=== PATIENT | male | born 1965 | race Caucasian/White ===

== ENCOUNTER 2017-08-31 08:48 | Inpatient (IN) | payer BC ==
[~2017-08-31] VITALS: Ht 185.4 cm; Wt 89.8 kg
--- NOTE | 2017-08-31 09:00 | NUR ---
BBRA 99 FROM HOME CG CALLED 911 PT MORE CONFUSED THAN BASELINE X3 DAYS. PATIENT IS JAUNDICE IN APPEARANCE. A/OX 1. BREATHING EVEN AND UNLABORED. NO SOB, NAD. ABDOMEN DISTENDED. VITALS STABLE. SAFETY AND COMFORT MEASURES IN PLACE. AWAITING MD ORDERS.
--- NOTE | 2017-08-31 09:19 | NUR ---
TRUCK DISPATCHER AT BEDSIDE FOR BLOOD DRAW.
--- NOTE | 2017-08-31 09:22 | NUR ---
PATIENT TAKEN TO CT VIA STRETCHER.
--- NOTE | 2017-08-31 09:33 | NUR ---
PATIENT RETURNED FROM CT IN STABLE CONDITION.
[2017-08-31 09:36] LABS: CARBON DIOXIDE 25 mmol/L (21-32); CHLORIDE 106 mmol/L (98-107); CREATININE 1.7 mg/dL (0.6-1.3); GLUCOSE 106 mg/dL (74-106); POTASSIUM 5.8 mmol/L (3.5-5.1); SODIUM SERUM 138 mmol/L (136-145); UREA NITROGEN, BLOOD 32 mg/dL (7-18)
[2017-08-31 09:38] LABS: SERUM AMMONIA 38 umol/L (11-32)
[2017-08-31 09:39] LABS: INR 1.71 (0.85-1.15)
[2017-08-31 09:42] LABS: ALANINE AMINOTRANSFERASE 28 U/L (12-78); ALBUMIN 2.4 g/dL (3.4-5.0); ALCOHOL, BLOOD < 3 mg/dL (0-0); ALKALINE PHOSPHATASE 105 U/L (46-116); ASPARTATE AMINOTRANSFERASE 58 U/L (15-37); BILIRUBIN,DIRECT 2.4 mg/dL (0.0-0.2); BILIRUBIN,TOTAL 4.3 mg/dL (0.2-1.0); TOTAL PROTEIN, SERUM 8.5 g/dL (6.4-8.2)
[2017-08-31 09:44] LABS: TROPONIN I < 0.017 ng/mL (0.00-0.056)
[2017-08-31 09:46] LABS: MEAN CORPUSCULAR HEMOGLOBIN 37 PG (26.0-33.0); MEAN CORPUSCULAR HGB CONC 35 g/dl (31.0-36.0); MEAN CORPUSCULAR VOLUME 104 fL (80-96); PLATELET COUNT (AUTO) 92 /CMM (150-450); RDW COEFFICIENT OF VARIATION 20.8 (11.5-15.0); WHITE BLOOD COUNT (AUTO) 2.6 K/uL (4.3-11.0)
--- NOTE | 2017-08-31 09:52 | NUR ---
URINE OBTAINED AND SENT TO LAB VIA STRAIGHT CATH PER MD ORDER. 600ML URINE OUT, PAMELA AND CLEAR. MD INFORMED.
[2017-08-31 09:58] LABS: HEMATOCRIT 20 % (39-51)
[2017-08-31 10:01] LABS: APPEARANCE,URINE Slightly Cloudy (CLEAR); BILIRUBIN,URINE Negative (NEGATIVE); BLOOD, URINE Negative Ery/uL (NEGATIVE); COLOR,URINE Yellow (YELLOW); KETONES,URINE Negative (NEGATIVE); LEUKOCYTE ESTERASE ,URINE Negative (NEGATIVE); NITRITE, URINE Negative (NEGATIVE); PROTEIN,URINE Negative (NEGATIVE); UGLUCOSE Negative (NEGATIVE)
[2017-08-31 10:02] LABS: EOSINOPHILS % (MANUAL) 4 % (0-4); LYMPHOCYTES % (MANUAL) 29 % (16-48); MONOCYTES % (MANUAL) 5 % (0-11.0); NEUTROPHILS % (MANUAL) 62 (42-76)
[2017-08-31 10:12] LABS: BACTERIA,URINE None seen /HPF (None Seen); SQUAMOUS EPITHELIAL CELL,UR Few /HPF (None Seen); WBC,URINE 0-2 /HPF (0-3)
--- NOTE | 2017-08-31 10:15 | NUR ---
CALLED [facility]D, DR PERRY AT [place], . DR. FOX SPOKE WITH DR. PERRY REGARDING TRANSFER. DR. PERRY WILL CALL BACK WITH UPDATE.
[2017-08-31] MEDS ORDERED: IV NS 0.9% 1,000 ML BAG IV ONE ×2 (10:30→19:00)
[2017-08-31] MEDS ORDERED: NICO1PAT44 TD (10:46)
[2017-08-31] MEDS ORDERED: ONDA8TAB9 PO (10:46)
[2017-08-31] MEDS ORDERED: THIA100T13 PO (10:46)
[2017-08-31] MEDS ORDERED: ALLO100T PO (10:46)
[2017-08-31] MEDS ORDERED: OLOP2.5D5 EACHEYE (10:46)
[2017-08-31] MEDS ORDERED: FOLI1TAB16 PO (10:46)
[2017-08-31] MEDS ORDERED: SPIR100T3 PO (10:46)
[2017-08-31] MEDS ORDERED: LACT10SO PO (10:46)
[2017-08-31] MEDS ORDERED: PANT40TA4 PO (10:46)
[2017-08-31] MEDS ORDERED: FLUT9.9S NS (10:46)
[2017-08-31] MEDS ORDERED: RIFA550T PO (10:46)
[2017-08-31] MEDS ORDERED: FURO40TA5 PO (10:46)
[2017-08-31] MEDS ORDERED: GABA-534 PO ×2 (10:46)
--- NOTE | 2017-08-31 11:50 | NUR ---
CALLED [facility] TRANSFER CENTER, ASKED FOR UPDATE ON STATUS OF TRANSFER, SHE INFORMED ME SHE HAS GOTTEN NO INFO ON THIS PT AND TO FAX HER INFO TO [phone]. FAXED INFO.
--- NOTE | 2017-08-31 12:07 | NUR ---
CALLED [facility] TRANSFER CENTER TO SEE IF THEY RECEIVED MY FAX, SPOKE WITH KYLER, HE SAID HE DID RECEIEVE IT BUT THERE ARE NO BEDS AVAILABLE TODAY AND PEOPLE HAVE BEEN WAITING 3 DAYS TO GET IN SO IT IS BEST TO ADMIT PT HERE AND THEY CAN TRANSFER LATER WHEN A BED BECOMES AVAILABLE AT [facility].
--- NOTE | 2017-08-31 12:40 | NUR ---
CALLED [facility] L[facility] TRANSPLANT [facility], , REQUESTED TO SPEAK TO THE NURSE COORDINATOR LEAD RAMP SERVICE MAN FOR TRANSFER, SHE SAID SHE WILL CALL BACK IN 5 MIN.
--- NOTE | 2017-08-31 12:55 | NUR ---
CALLED [facility] TRANSPLANT C[facility] TO FOLLOW UP WITH PT, SPOKE WITH JACK, SHE SAID THE NURSE COORDINATOR STOCK WORKER AND DELIVERER FOR TRANSFER SHOULD CALL SOON AND SHE WILL CALL ME IN 10 MIN TO CHECK.
--- NOTE | 2017-08-31 13:13 | NUR ---
CALLED [facility] TRANSPLANT C[facility], SPOKE WITH THE NURSE COORDINATOR JEWEL BEARING GRINDER FOR [facility], SHE INFORMED ME SHE WILL HAVE A (RADIO ASSEMBLER) CALL BACK TO SPEAK TO REGARDING TRANSFER.
--- NOTE | 2017-08-31 13:52 | NUR ---
DR CHAO TALKING ON THE PHONE WITH DR FOX.
[2017-08-31] MEDS ORDERED: LACTULOSE 10 G/15 ML UDC (PYXIS) PO ONE (14:00)
[2017-08-31] MEDS ORDERED: LACTULOSE 10 G/15 ML UDC (PYXIS) ONE (14:00)
--- NOTE | 2017-08-31 14:00 | NUR ---
RECEIVED CALL FROM AUDREY AT [facility] LIVER TRANSPLANT QUITMAN, SHE SAID THE NETWORK SECURITY CONSULTANT ACCEPTED THE PT AND SHE WILL START THE TRANSFER PROCESS AND TO FAX HER PT INFO TO [phone].
--- NOTE | 2017-08-31 14:13 | NUR ---
PAGED [facility] -- ELECTROMAGNET CRANE OPERATOR IS DR GRAVES
--- NOTE | 2017-08-31 15:12 | NUR ---
REPORT GIVEN TO GIOVANNA HORNE FOR LEI TELE 106.
--- NOTE | 2017-08-31 15:15 | NUR ---
PATIENT TRANSPORTED TO [facility] VIA ACLS PROTCOL. COLEEN HEREDIA TO PROVIDE LEI.
[2017-08-31] MEDS ORDERED: ONDANSETRON 4 MG TAB.RAPDIS PO PRN (16:00)
[2017-08-31] MEDS: LACTULOSE 10 G/15 ML UDC (PYXIS) PO SCH ×2 (16:12→18:38)
[2017-08-31] MEDS: RIFAXIMIN 550 MG TABLET PO SCH (16:13)
[2017-08-31] MEDS: PANTOPRAZOLE 40 MG TABLET.DR PO SCH (16:13)
[2017-08-31] MEDS: GABAPENTIN 300 MG CAPSULE PO SCH (16:13)
[2017-08-31 16:30] VITALS: BP 97/53
[2017-08-31] MEDS: OLOPATADINE HCL 0.1% OPHTH BOTTLE EACHEYE SCH (18:38)
--- NOTE | 2017-08-31 19:00 | NUR ---
RN NOTES Received patient asleep but easily awakens,opens eyes,does not talk much,just answers in few words.Disoriented ,can not tell his birthday or his age,follows simple commands but responds slow.Not in distress ,able to move and turn but a little waek.Comfort care done,needs attended.Caregiver at bedside.Noted purplish discoloration of the 2nd toe(next to the big toe).Abrasion noted on the right below the knee.
[2017-08-31] MEDS ORDERED: IV NS 0.9% 1,000 ML IV PRN (19:30)
[2017-08-31 20:00] VITALS: BP 115/57
[2017-08-31] MEDS ORDERED: NICOTINE PATCH (14MG) 14 MG PATCH.TD24 TD SCH (21:00)
[2017-08-31] MEDS ORDERED: GABAPENTIN 300 MG CAPSULE PO SCH (22:00)
[2017-09-01] VITALS: BP 117/57
--- NOTE | 2017-09-01 | NUR ---
RN NOTES Status unchanged,asleep most of the time but awakens easily,still disoriented but cooperative.Not in distress. [facility] called,no bed for the patient tonight.
[2017-09-01 04:00] VITALS: BP 114/50
--- NOTE | 2017-09-01 07:00 | NUR ---
RN NOTES Remains stable,asleep most of the time,awakens but easily falls back to sleep.report given to Sharifa HEREDIA.
--- NOTE | 2017-09-01 07:30 | NUR ---
MANAGER MOTOR AM NOTES RECEIVED PT ON BED, ASLEEP, AROUSES TO NAME AND TOUCH, CONFUSED, FOLLOWS SIMPLE COMMAND, RESPIRATION EVEN AND UNLABORED, ON RA , NO DISTRESS NOTED, L HAND IV SITE CDI, WITH NS AT 75CC/HR RUNNING , SR UP x3, CALL LIGHT WITHIN EASY REACH, BED LOCKED AND IN LOWEST POSITION , SAFETY MEASURES IN PLACE. WILL CONTINUE TO MONITOR.
[2017-09-01 08:00] VITALS: BP 107/51
[2017-09-01] MEDS ORDERED: SPIRONOLACTONE 50 MG TABLET PO SCH (09:00)
[2017-09-01] MEDS ORDERED: FOLIC ACID 1 MG TABLET PO SCH (09:00)
[2017-09-01] MEDS ORDERED: FUROSEMIDE 40 MG TABLET PO SCH (09:00)
[2017-09-01] MEDS ORDERED: THIAMINE HCL 100 MG TABLET PO SCH (09:00)
[2017-09-01] MEDS ORDERED: NICOTINE PATCH (14MG) 14 MG PATCH.TD24 TD SCH (09:00)
[2017-09-01] MEDS ORDERED: FLUTICASONE PROPIONATE 16 GM BOTTLE NS PRN (09:00)
[2017-09-01] MEDS ORDERED: ALLOPURINOL 100 MG TABLET PO SCH (09:00)
[2017-09-01] MEDS: OLOPATADINE HCL 0.1% OPHTH BOTTLE EACHEYE SCH (09:28)
[2017-09-01] MEDS: PANTOPRAZOLE 40 MG TABLET.DR PO SCH (09:29)
[2017-09-01] MEDS: RIFAXIMIN 550 MG TABLET PO SCH (09:29)
[2017-09-01] MEDS: GABAPENTIN 300 MG CAPSULE PO SCH (09:29)
[2017-09-01] MEDS: LACTULOSE 10 G/15 ML UDC (PYXIS) PO SCH ×2 (09:30→12:39)
--- NOTE | 2017-09-01 09:30 | NUR ---
SPRING UP SUPERVISOR NOTES ADMINISTERED DUE MEDS.
[2017-09-01 12:00] VITALS: BP 101/50
--- NOTE | 2017-09-01 12:00 | NUR ---
RN NOTES RECEIVED PT ON BED, ALERT/ CONFUSED, FOLLOWS SIMPLE COMMAND, RESPIRATION EVEN AND UNLABORED, ON RA , NO DISTRESS NOTED, L HAND IV SITE CDI, WITH NS AT 75CC/HR RUNNING , SR UP x3, CALL LIGHT WITHIN EASY REACH, BED LOCKED AND IN LOWEST POSITION , WILL CONTIENU TO MONITOR PT CLOSELY
--- NOTE | 2017-09-01 13:30 | NUR ---
RN NOTE PATIENT STATED HE WANTED TO LEAVE AMA. EXPLAINED TO PATIENT THE RISKS OF LEAVING AMA, PATIENT STILL INSISTED TO LEAVE, [facility] ECD INFORMED. AMA FORM SIGNED. PATIENT'S FAMILY WILL PROVIDE TRANSPORTATION. TELE LEADS REMOVED, CLEANED PATIENT, IV REMOVED AND CATH INTACT, PATIENT REMAINS STABLE. MADE AWARE.
--- NOTE | 2017-09-01 14:54 | NUR ---
RN NOTE [facility] WILL BE TAKING RESIDENT VIA GURNEY. PATIENT REMAINS STABLE, VITAL SIGN ARE WNL. FAMILY MEMBER WILL ACCOMPANY RESIDENT HOME.
== END 2017-09-01 14:35 | disposition left against medical advice (07) | DRG 441 ==
LOC: ER 08:49 → TELE1 15:12
PROVIDERS: ADMIT Family Medicine; ATTEND Family Medicine
DX: K72.90 Hepatic failure, unspecified without coma (principal); K76.7 Hepatorenal syndrome; E44.0 Moderate protein-calorie malnutrition; G93.41 Metabolic encephalopathy; N17.9 Acute kidney failure, unspecified; K76.6 Portal hypertension; K70.30 Alcoholic cirrhosis of liver without ascites; N18.9 Chronic kidney disease, unspecified; K80.20 Calculus of gallbladder without cholecystitis without obstruction; K70.31 Alcoholic cirrhosis of liver with ascites; E87.5 Hyperkalemia; D63.8 Anemia in other chronic diseases classified elsewhere; Z88.1 Allergy status to other antibiotic agents; Z91.018 Allergy to other foods; Z72.0 Tobacco use
CPT/HCPCS: 36415; 70450-TC; 71045-TC; 76700-TC; 80048-TC; 80076-TC; 80305; 81000-TC; 82140-TC; 82962-TC; 84484-TC; 85025-TC; 85730-TC; 87081-TC; A4606; G0480; J3490; J7030; Z7610

== ENCOUNTER 2017-09-17 09:53 | Emergency (ER) | payer BC ==
[~2017-09-17] VITALS: Ht 180.3 cm; Wt 84.4 kg
[~2017-09-17 09:53] MED LIST: ALLO100T PO; FLUT9.9S NS; FOLI1TAB16 PO; FURO40TA5 PO; GABA-534 PO; LACT10SO PO; NICO1PAT44 TD; OLOP2.5D5 EACHEYE; ONDA8TAB9 PO; PANT40TA4 PO; RIFA550T PO; SPIR100T5 PO; THIA100T13 PO
--- NOTE | 2017-09-17 09:53 | NUR ---
BBRA: 99 FROM HOME: ALOC. [facility] Hx OF ESLD. PT PLACED ON MONITOR. RR EVEN AND UNLABORED. MD AT BEDSIDE FOR EVAL.
[2017-09-17] MEDS ORDERED: PIPERACILLIN /TAZOBACTAM 3.375 G in IV D5W 50 ML IV ONE (10:30)
[2017-09-17] MEDS ORDERED: VANCOMYCIN 1 GM in IV D5W 250 ML IV ONE (10:30)
[2017-09-17] MEDS ORDERED: IV NS 0.9% 1,000 ML BAG IV ONE (10:30)
--- NOTE | 2017-09-17 10:36 | NUR ---
panel on-call paged
[2017-09-17] MEDS ORDERED: OLAN10TA3 PO (10:42)
[2017-09-17] MEDS ORDERED: MIRT30TA7 PO (10:42)
[2017-09-17 10:50] LABS: CALCIUM, SERUM 9.1 mg/dL (8.5-10.1); CARBON DIOXIDE 23 mmol/L (21-32); CHLORIDE 106 mmol/L (98-107); CREATININE 1.4 mg/dL (0.6-1.3); GLUCOSE 112 mg/dL (74-106); POTASSIUM 5.8 mmol/L (3.5-5.1); SODIUM SERUM 137 mmol/L (136-145); UREA NITROGEN, BLOOD 44 mg/dL (7-18)
[2017-09-17 10:52] LABS: EOSINOPHILS % (AUTO) 1.6 % (0.0-6.0); HEMATOCRIT 25 % (39-51); HEMOGLOBIN 8.8 g/dL (13.5-17.5); LYMPHOCYTES # (AUTO) 1.2 /CMM (0.8-4.8); LYMPHOCYTES % (AUTO) 29.9 % (20.0-44.0); MEAN CORPUSCULAR HGB CONC 35 g/dl (31.0-36.0); MEAN CORPUSCULAR VOLUME 103 fL (80-96); MONOCYTES # (AUTO) 0.4 /CMM (0.1-1.30); MONOCYTES % (AUTO) 10.4 % (2.0-12.0); NEUTROPHILS # (AUTO) 2.3 /CMM (1.8-8.9); NEUTROPHILS % (AUTO) 58.1 % (43.0-81.0); PLATELET COUNT (AUTO) 84 /CMM (150-450); RDW COEFFICIENT OF VARIATION 22.3 (11.5-15.0); RED BLOOD CELL COUNT(AUTO) 2.46 MIL/uL (4.5-6.0); WHITE BLOOD COUNT (AUTO) 3.9 K/uL (4.3-11.0)
[2017-09-17 10:53] LABS: INR 1.64 (0.85-1.15)
[2017-09-17 10:56] LABS: ALANINE AMINOTRANSFERASE 50 U/L (12-78); ALBUMIN 2.8 g/dL (3.4-5.0); ALKALINE PHOSPHATASE 216 U/L (46-116); ASPARTATE AMINOTRANSFERASE 68 U/L (15-37); BILIRUBIN,DIRECT 2.3 mg/dL (0.0-0.2)
[2017-09-17] MEDS ORDERED: METRONIDAZOLE 250 MG TABLET PO SCH (11:30)
[2017-09-17] MEDS ORDERED: LACTULOSE 10 G/15 ML UDC (PYXIS) PO ONE (11:30)
[2017-09-17 11:36] LABS: EOSINOPHILS % (MANUAL) 3 % (0-4); LYMPHOCYTES % (MANUAL) 38 % (16-48); MONOCYTES % (MANUAL) 4 % (0-11.0); NEUTROPHILS % (MANUAL) 55 (42-76)
--- NOTE | 2017-09-17 11:53 | NUR ---
SPOKE TO ALECIA AT THE [facility] TRANSFER TEAM. WAS GIVEN A CALL BACK NUMBER FOR THE [facility] LIVER TEAM TO CREATE A POSSIBLE TRANSFER FOR THIS PT. CALL BACK #: [phone]
--- NOTE | 2017-09-17 11:59 | NUR ---
CALLED [facility] LIVER AND TRANSPLANT TEAM BUT NO ONE ANSWERED THE LINE
[2017-09-17 12:00] VITALS: BP 126/66
--- NOTE | 2017-09-17 12:07 | NUR ---
Spoke with Kandace at [facility], explained how no one answered the line at [facility] [place], she said she would have someone call us back. Call Back#:
--- NOTE | 2017-09-17 12:18 | NUR ---
Spoke to Maribell at the [facility]plant Team (#: ). Faxing over paperwork to . Dr Dupree will go ahead and give our MD a call when possible.
--- NOTE | 2017-09-17 12:29 | NUR ---
Called [facility] and notified them that i had faxed over the requested paperwork.
--- NOTE | 2017-09-17 12:55 | NUR ---
DR POP ON PHONE WITH DR CORONA FROM [facility]
[2017-09-17] MEDS ORDERED: LACTULOSE UDC 200 G in SODIUM CHLORIDE IRRIG SOLUTION 400 ML IR SCH (13:00)
--- NOTE | 2017-09-17 13:05 | NUR ---
DR POP EXPLAINED THAT DR CORONA WILL BE PLACING THE PT ON A TRANSFER LIST BUT [facility] INFORMED US THAT THERE ARE NO BEDS AVAILABLE AT THIS TIME. WILL INFORM FAMILY.
--- NOTE | 2017-09-17 13:31 | NUR ---
does not wish to proceed with medical care recommended by Dr. Cardenas. given information related to possible complications, up to and including , which could occur as a result of leaving the hospital at this time. verbalizes understanding of risks involved due to leaving against medical advice. has signed AMA form. Per will call own ambulance for transport. Dr cardenas is aware. VSS.
[2017-09-17 13:39] LABS: TROPONIN I < 0.017 ng/mL (0.00-0.056)
== END 2017-09-17 17:00 | disposition left against medical advice (07) ==
LOC: ER 09:54 → UNDOADMIN 11:11 → TELE-TD 11:11
DX: K72.90 Hepatic failure, unspecified without coma (principal); R41.82 Altered mental status, unspecified; Z53.20 Procedure and treatment not carried out because of patient's decision for unspecified reasons; Z88.1 Allergy status to other antibiotic agents; Z88.2 Allergy status to sulfonamides; Z91.011 Allergy to milk products; Z91.018 Allergy to other foods; Z88.8 Allergy status to other drugs, medicaments and biological substances
CPT/HCPCS: 36415; 71045; 80048; 80076; 82140; 83605; 84484; 85025; 85730; 87040 ×2; 93005; 96365; 96367; 99291; A4217; A4606; J2543; J3370; J7030; J7040; J7050; J7060 ×2; Z7610

== ENCOUNTER 2017-10-05 11:44 | Emergency (ER) | payer BC ==
[~2017-10-05] VITALS: Ht 180.3 cm; Wt 83.9 kg
[~2017-10-05 11:44] MED LIST changes: +MIRT30TA7 PO; +OLAN10TA3 PO; +SPIR100T3 PO; -SPIR100T5 PO
--- NOTE | 2017-10-05 11:44 | NUR ---
BRBA FROM HOME C/O MORE ALTERED THAN NORMAL. PT CURRENTLY ALERT TO NAME, RESPONDS TO SIMPLE COMMANDS. RR EVEN AND UNLABORED. PENDING MD GUSTAFSON.
[2017-10-05 11:49] VITALS: BP 127/78
[2017-10-05] MEDS ORDERED: ONDANSETRON HCL/PF 4 MG/2 ML VIAL ONE (12:10)
--- NOTE | 2017-10-05 12:10 | NUR ---
PT TAKEN TO CT.
[2017-10-05 12:14] LABS: BASOPHILS % (AUTO) 0.5 % (0.0-2.0); EOSINOPHILS # (AUTO) 0.1 /CMM (0.0-0.7); EOSINOPHILS % (AUTO) 3.6 % (0.0-6.0); LYMPHOCYTES % (AUTO) 25.3 % (20.0-44.0); MONOCYTES # (AUTO) 0.4 /CMM (0.1-1.30); MONOCYTES % (AUTO) 9.6 % (2.0-12.0); NEUTROPHILS # (AUTO) 2.4 /CMM (1.8-8.9); WHITE BLOOD COUNT (AUTO) 3.9 K/uL (4.3-11.0)
[2017-10-05 12:16] LABS: MEAN CORPUSCULAR HEMOGLOBIN 40 PG (26.0-33.0); MEAN CORPUSCULAR HGB CONC 38 g/dl (31.0-36.0); MEAN CORPUSCULAR VOLUME 103 fL (80-96); PLATELET COUNT (AUTO) 74 /CMM (150-450); RDW COEFFICIENT OF VARIATION 18.7 (11.5-15.0)
[2017-10-05 12:18] LABS: HEMATOCRIT 18 % (39-51); RED BLOOD CELL COUNT(AUTO) 1.76 MIL/uL (4.5-6.0)
[2017-10-05 12:23] LABS: INR 1.56 (0.85-1.15)
[2017-10-05] MEDS ORDERED: ONDANSETRON HCL/PF 4 MG/2 ML VIAL IVP ONE (12:30)
[2017-10-05] MEDS ORDERED: IV NS 0.9% 1,000 ML BAG IV ONE (12:30)
[2017-10-05 12:36] LABS: CALCIUM, SERUM 9.4 mg/dL (8.5-10.1); CARBON DIOXIDE 20 mmol/L (21-32); CHLORIDE 108 mmol/L (98-107); CREATININE 1.4 mg/dL (0.6-1.3); GLUCOSE 109 mg/dL (74-106); SODIUM SERUM 137 mmol/L (136-145); UREA NITROGEN, BLOOD 59 mg/dL (7-18)
[2017-10-05 12:42] LABS: ALANINE AMINOTRANSFERASE 65 U/L (12-78); ALBUMIN 2.7 g/dL (3.4-5.0); ALCOHOL, BLOOD < 3 mg/dL (0-0); ALKALINE PHOSPHATASE 208 U/L (46-116); ASPARTATE AMINOTRANSFERASE 86 U/L (15-37); BILIRUBIN,DIRECT 2.1 mg/dL (0.0-0.2); TROPONIN I < 0.017 ng/mL (0.00-0.056)
[2017-10-05 12:43] LABS: SERUM AMMONIA 101 umol/L (11-32)
--- NOTE | 2017-10-05 12:45 | NUR ---
AT BEDSIDE. REQUESTING FOR TRANSFER TO [facility]. AWARE.
--- NOTE | 2017-10-05 13:05 | NUR ---
CALLED [facility] [phone], SPOKE WITH ANGIE, FAXED HER FACESHEET AND CLINICALS TO [phone], HER CELL IS [phone]. SHE SAID SHE WILL WORK ON TRANSFER ONCE SHE GETS THE FAX.
[2017-10-05 13:08] LABS: BAND % (MANUAL) 1 % (0.0-5.0); EOSINOPHILS % (MANUAL) 5 % (0-4); LYMPHOCYTES % (MANUAL) 27 % (16-48); MONOCYTES % (MANUAL) 6 % (0-11.0); NEUTROPHILS % (MANUAL) 61 (42-76)
[2017-10-05] MEDS ORDERED: LACTULOSE 10 G/15 ML UDC (PYXIS) GT ONE (13:30)
[2017-10-05] MEDS ORDERED: LACTULOSE 10 G/15 ML UDC (PYXIS) ONE (13:31)
--- NOTE | 2017-10-05 13:51 | NUR ---
CALLED ANGIE AT [facility], SHE SAID SHE WILL HAVE GIVE US A CALL BACK.
[2017-10-05 14:03] LABS: APPEARANCE,URINE Clear (CLEAR); BILIRUBIN,URINE Negative (NEGATIVE); BLOOD, URINE Trace-intact Ery/uL (NEGATIVE); COLOR,URINE Yellow (YELLOW); KETONES,URINE Negative (NEGATIVE); LEUKOCYTE ESTERASE ,URINE Negative (NEGATIVE); NITRITE, URINE Negative (NEGATIVE); PROTEIN,URINE Negative (NEGATIVE); UGLUCOSE Negative (NEGATIVE)
[2017-10-05 14:15] LABS: BACTERIA,URINE None seen /HPF (None Seen); SQUAMOUS EPITHELIAL CELL,UR Few /HPF (None Seen); WBC,URINE 0-3 /HPF (0-3)
--- NOTE | 2017-10-05 14:57 | NUR ---
CALLED [facility] TRANSFER LINE FOR UPDATE ON TRANSFER, SPOKE WITH SLOAN, HE SAID THEY ARE WAITING FOR FINANCIAL CLEARANCE AND STILL WORKING ON GETTING A BED AND THAT BEDS ARE PRETTY TIGHT RIGHT NOW BUT HE WILL LET ME KNOW BY 1700 IF THEY WILL HAVE A BED FOR HIM TODAY.
--- NOTE | 2017-10-05 17:12 | NUR ---
1 UNIT PRBC STARTED WITNESSED BY ANDREW LEGGETT RN. PT'S SIGNED THE CONSENT.
--- NOTE | 2017-10-05 17:51 | NUR ---
CALLED [facility] TRANSFER [facility] TO ASK FOR UPDATE ON STATUS OF TRANSFER, SPOKE WITH SLOAN, THERE ARE NO BEDS AVAILABLE RIGHT NOW AND HE SAID THERE MIGHT NOT BE BEDS UNTIL 2100 TONIGHT OR EVEN TOMORROW, SO HE SAID IF WE NEED TO ADMIT THE PT WE CAN DO THAT AND THEY WILL TRANSFER THE PT ONCE THEY HAVE A BED.
--- NOTE | 2017-10-05 19:09 | NUR ---
RECEIVED REPORT FROM GIOVANNA REYES FOR LEI.
--- NOTE | 2017-10-05 19:30 | NUR ---
RECEIVED REPORT FROM GIOVANNA REYES. DURING REPORT, WAS NOTIFIED OF PT GOING AMA AND AMA PAPERWORK WAS SIGNED. PT'S CALLED TRANSPORT TEAM AND MADE AWARE. AWAITING TRANSPORT TEAM.
--- NOTE | 2017-10-05 20:12 | NUR ---
TRANSPORT TEAM BEDSIDE FOR TRANSPORT.
--- NOTE | 2017-10-05 20:17 | NUR ---
CALL FROM [facility]. WAS NOTIFIED THAT THERE WILL BE A BED AVAILABLE. PT FAMILY NOTIFIED OF UPDATE FROM [facility]. DESPITE BED AVAILABILITY FAMILY CHOOSES TO LEAVE ER AMA.
--- NOTE | 2017-10-05 20:24 | NUR ---
Patient does not wish to proceed with medical care recommended by (RUDDY ). Patient given information related to possible complications, up to and including , which could occur as a result of leaving the hospital at this time. Patient verbalizes understanding of risks involved due to leaving against medical advice. Patient has signed AMA form. PT's called private ambulance for transport to [facility].
== END 2017-10-05 20:30 | disposition left against medical advice (07) ==
LOC: ER 11:46
DX: E72.20 Disorder of urea cycle metabolism, unspecified (principal); K72.90 Hepatic failure, unspecified without coma; D64.9 Anemia, unspecified; R41.82 Altered mental status, unspecified; Z88.8 Allergy status to other drugs, medicaments and biological substances; Z91.018 Allergy to other foods; Z88.1 Allergy status to other antibiotic agents; Z91.011 Allergy to milk products; Z88.2 Allergy status to sulfonamides
CPT/HCPCS: 36415; 70450-TC; 71045-TC; 80048-TC; 80076-TC; 80305; 81000-TC; 82140-TC; 84484-TC; 85025-TC; 85730-TC; 86850-TC; 86921-TC; A4606; G0480; J2405; J7030; J7050; P9016-BL; Z7610

== ENCOUNTER 2017-10-13 11:49 | Emergency (ER) | payer BC ==
[~2017-10-13] VITALS: Ht 175.3 cm; Wt 83.9 kg
[~2017-10-13 11:49] MED LIST changes: -SPIR100T3 PO; +SPIR100T5 PO
--- NOTE | 2017-10-13 12:05 | NUR ---
BBRA99 FROM HOME: KOFI, BS IN FIELD 154. Hx OF LIVER FAILURE. A/OX 1 AT THIS TIME. BREATHING EVEN AND UNLABORED. NO SOB, NAD, VITALS STABLE. SAFETY AND COMFORT MEASURES IN PLACE. AWAITING MD ORDERS.
[2017-10-13] MEDS ORDERED: IV NS 0.9% 1,000 ML BAG IV ONE (12:30)
--- NOTE | 2017-10-13 12:35 | NUR ---
ROUTE SALESPERSON AT BEDSIDE FOR BLOOD DRAW
--- NOTE | 2017-10-13 12:40 | NUR ---
CERTIFIED PUBLIC ACCOUNTANT AT BEDSIDE.
[2017-10-13 12:46] LABS: BASOPHILS % (AUTO) 0.8 % (0.0-2.0); EOSINOPHILS % (AUTO) 2.6 % (0.0-6.0); HEMATOCRIT 21 % (39-51); LYMPHOCYTES % (AUTO) 22.9 % (20.0-44.0); MEAN CORPUSCULAR HGB CONC 38 g/dl (31.0-36.0); MEAN CORPUSCULAR VOLUME 101 fL (80-96); MONOCYTES # (AUTO) 0.5 /CMM (0.1-1.30); MONOCYTES % (AUTO) 10.8 % (2.0-12.0); NEUTROPHILS # (AUTO) 2.9 /CMM (1.8-8.9); NEUTROPHILS % (AUTO) 62.9 % (43.0-81.0); RDW COEFFICIENT OF VARIATION 21.8 (11.5-15.0); RED BLOOD CELL COUNT(AUTO) 2.07 MIL/uL (4.5-6.0)
[2017-10-13 12:51] LABS: CALCIUM, SERUM 9.3 mg/dL (8.5-10.1); CREATININE 1.9 mg/dL (0.6-1.3); HEMOGLOBIN 7.9 g/dL (13.5-17.5); POTASSIUM 4.5 mmol/L (3.5-5.1)
[2017-10-13 12:56] LABS: ALBUMIN 2.7 g/dL (3.4-5.0); BILIRUBIN,DIRECT 2.6 mg/dL (0.0-0.2); BILIRUBIN,TOTAL 5.1 mg/dL (0.2-1.0); TOTAL PROTEIN, SERUM 8.1 g/dL (6.4-8.2)
--- NOTE | 2017-10-13 12:57 | NUR ---
CALLED [facility] [phone], SPOKE WITH DEVYN. SHE SAID SHE WOULD LEAVE A MESSAGE TO THE APPLICATION DBA NURSE AUDREY. SHE WILL CALL US BACK SHORTLY.
[2017-10-13 12:59] LABS: INR 1.55 (0.85-1.15)
[2017-10-13] MEDS ORDERED: LACTULOSE UDC 200 G in SODIUM CHLORIDE IRRIG SOLUTION 400 ML IR ONE (13:00)
[2017-10-13 13:02] LABS: TROPONIN I 0.019 ng/mL (0.00-0.056)
--- NOTE | 2017-10-13 13:15 | NUR ---
ROSE FROM [facility] CALLED BACK, SPOKE WITH DR POP. FAXED OVER FACESHEET.
[2017-10-13 13:19] LABS: BAND % (MANUAL) 2 % (0.0-5.0); EOSINOPHILS % (MANUAL) 1 % (0-4); LYMPHOCYTES % (MANUAL) 18 % (16-48); MONOCYTES % (MANUAL) 12 % (0-11.0); NEUTROPHILS % (MANUAL) 67 (42-76)
[2017-10-13 13:25] LABS: PLATELET COUNT (AUTO) 68 /CMM (150-450); WHITE BLOOD COUNT (AUTO) 2.7 K/uL (4.3-11.0)
--- NOTE | 2017-10-13 14:00 | NUR ---
URINE OBTAINED VIA STRAIGHT CATH PER MD ORDERS AND SENT TO LAB.
[2017-10-13 14:14] LABS: APPEARANCE,URINE Clear (CLEAR); BILIRUBIN,URINE Negative (NEGATIVE); BLOOD, URINE Negative Ery/uL (NEGATIVE); COLOR,URINE Dark (YELLOW); KETONES,URINE Negative (NEGATIVE); LEUKOCYTE ESTERASE ,URINE Negative (NEGATIVE); NITRITE, URINE Negative (NEGATIVE); PH,URINE 6.5 (5.0-8.0); PROTEIN,URINE Negative (NEGATIVE); UGLUCOSE 100 MG/DL mg/dL (NEGATIVE)
[2017-10-13 14:16] LABS: BACTERIA,URINE None seen /HPF (None Seen); RBC,URINE 0-2 /HPF (0-2); WBC,URINE 0-2 /HPF (0-3)
[2017-10-13 14:17] LABS: SQUAMOUS EPITHELIAL CELL,UR Rare /HPF (None Seen)
--- NOTE | 2017-10-13 14:53 | NUR ---
CALLED [facility] , SPOKE WITH SLOAN REGARDING UPDATE. STILL WAITING FOR BED ASSIGNMENT.
--- NOTE | 2017-10-13 17:05 | NUR ---
CALLED [facility] , SPOKE WITH OCTAVIA REGARDING UPDATE. STILL WAITING FOR BED ASSIGNMENT.
--- NOTE | 2017-10-13 19:20 | NUR ---
OCTAVIA FROM [facility] CALLED, PATIENT WILL BE GOING TO BED [address] PARKER. NUMBER TO GIVE REPORT
--- NOTE | 2017-10-13 19:25 | NUR ---
REPORT GIVEN TO ELMER HEREDIA FOR LEI.
--- NOTE | 2017-10-13 19:32 | NUR ---
CALLED [facility] FOR TRANSPORT, ETA OF 2044 WAS GIVEN. TRIP#[id number]
--- NOTE | 2017-10-13 20:48 | NUR ---
REPORT GIVEN TO ALEXANDER HEREDIA AT [facility] FOR LEI.
--- NOTE | 2017-10-13 21:15 | NUR ---
PATIENT OPENS EYES YET NONVERBAL AT THIS TIME. VSS. NAD NOTED. ENDORSED CARE TO [facility] STAFF FOR TRANSPORT.
[2017-10-13 21:17] VITALS: BP 118/68
== END 2017-10-13 21:20 | disposition short-term general hospital (02) ==
LOC: ER 11:54
DX: R41.82 Altered mental status, unspecified (principal); K72.10 Chronic hepatic failure without coma; E72.20 Disorder of urea cycle metabolism, unspecified; N28.9 Disorder of kidney and ureter, unspecified; Z88.1 Allergy status to other antibiotic agents; Z88.2 Allergy status to sulfonamides; Z91.011 Allergy to milk products; Z91.018 Allergy to other foods; Z88.8 Allergy status to other drugs, medicaments and biological substances; Z98.890 Other specified postprocedural states
CPT/HCPCS: 36415; 71045; 80048; 80076; 81001; 82140; 82962; 84484; 85025; 85730; 93005; 96360; 99285; A4217; A4606; J7030; Z7610; 81000-TC